=== PATIENT | male | born 1990 | race Hispanic/Latino ===

== ENCOUNTER → 2017-09-23 | Outpatient (RCR) | payer OTHER | LOC: PT 09-10 14:06 | PROVIDERS: ATTEND Specialist | DX: M99.03 Segmental and somatic dysfunction of lumbar region (principal); M54.5 Low back pain; M53.86 Other specified dorsopathies, lumbar region; M62.81 Muscle weakness (generalized) ==

== ENCOUNTER 2017-10-16 14:00 | Outpatient (RCR) | payer OTHER | END 2017-10-21 | LOC: PT 14:00 | PROVIDERS: ATTEND Specialist | DX: M99.03 Segmental and somatic dysfunction of lumbar region (principal); M54.5 Low back pain; M62.81 Muscle weakness (generalized); M53.86 Other specified dorsopathies, lumbar region | CPT/HCPCS: 97139 ==